=== PATIENT | male | born 1940 | race Caucasian/White ===

== ENCOUNTER → 2016-04-04 | Outpatient (CLI) | payer OTHER ==
--- NOTE | 2016-04-04 23:07 | CT ---
CT Chest, Without Contrast - High-Resolution Indication: Progressive cough and fever. Evaluate for infiltrates. TECHNIQUE: High-resolution protocol, with 1.25-mm contiguous helical axial scanning, through the liban st. The patient was imaged in the supine and prone position. The patient was imaged in expiration a nd inspiration. Dose reduction techniques were performed. COMPARISON: Chest x-ray May 05, 2015. Findings: There is a focal area of ground-glass opacity in the right upper lobe as well as other dif fuse peribronchial/perivascular ground-glass opacity in the right upper lobe only. The right middle lobe shows nondependent mild interstitial thickening. There is a patchy area of scarring or consolid ation at the lateral right and left bases as well as posterior left base. No evidence of significant air trapping. There has been a prior median sternotomy for aortic valvular repair. There has been prior fusions of the lower cervical spine and lumbar spine. Limited examination of the upper abdomen is unremarkable . Dense material in the colon likely represents an ingested pill. IMPRESSIONS 1. Patchy areas of ground-glass opacity in the right upper lobe. Recommend short interval follow up to evaluate for resolution. This is nonspecific but likely represents interstitial lung disease. A n interstitial pneumonia is not excluded. 2. There are also some consolidative or scarring changes at the lateral right and left bases and pos terior left base. Query history of aspiration. E:amm A Follow-Up Required message has been communicated to Jay Busby MD via the [employer] system on 04/04/2016 18:19, Message ID [id number].
== END ==
LOC: FIMAGING 15:05
PROVIDERS: ATTEND Internal Medicine
DX: R91.8 Other nonspecific abnormal finding of lung field (principal)

== ENCOUNTER → 2016-04-26 | Outpatient (CLI) | payer OTHER ==
--- NOTE | 2016-04-26 16:45 | DX ---
PA and Lateral Chest April 26, 2016 History: Follow up pneumonia in a 75-year-old male, with comparison to PA and lateral chest February 27, 2016 and high-resolution CT scan of the chest April 04, 2016. Findings: The heart and mediastinum are normal. Cardiac valvular replacement is stable as are the s ternotomy wires. Pulmonary vascularity is normal. Aortic tortuosity is seen, which may reflect syst emic arterial hypertension. An element of hyperexpansion is seen. There is patchy opacity at the ri ght heart border, which presumably reflects an inflammatory process in the lingular segment of the le ft upper lobe, which is more prominent than on the CT scan. Minimal blunting of the costophrenic ang les is seen, without significant pleural effusion. An element of hyperexpansion is suspected. Impression: 1. Patchy lingular segment opacity may reflect active inflammatory process. 2. Hyperexpansion suggests an element of COPD. 3. See above report for additional findings.
== END ==
LOC: BMCIMAGING 15:59
PROVIDERS: ATTEND Internal Medicine Critical Care Medicine
DX: J18.9 Pneumonia, unspecified organism (principal); Z95.2 Presence of prosthetic heart valve

== ENCOUNTER → 2016-05-15 | Outpatient (CLI) | payer OTHER ==
[~2016-05-15] MED LIST: LIDOCAINE 1% 30 ML SDV ONE; LIDOCAINE 2% JELLY 5 ML TUBE ONE; MIDAZOLAM 2 MG/2 ML VIAL ONE; fentaNYL 100 MCG/2 ML INJ ONE
== END ==
LOC: FIMAGING 16:18
PROVIDERS: ATTEND Internal Medicine Critical Care Medicine
DX: J18.9 Pneumonia, unspecified organism (principal)
CPT/HCPCS: J2250; J3010

== ENCOUNTER 2016-05-16 07:43 | Day surgery (SDC) | payer OTHER ==
--- NOTE | 2016-05-16 10:06 | GPN ---
DATE OF PROCEDURE: 05/16/2016 PROCEDURE: Flexible fiberoptic bronchoscopy. REASON FOR THE PROCEDURE: Infiltrates and symptoms, possible TB. DESCRIPTION OF PROCEDURE: The risks and benefits of the procedure were explained to the patient, who agreed to proceed. The entire procedure was performed in a negative pressure room. After an appropriate time-out, the patient's oropharynx was anesthetized with topical Hurricaine spray, and a bite block was placed between his teeth. The bronchoscope was advanced through the bite block into the vocal cords, which moved normally. 1% lidocaine was used topically on the airways for anesthesia. The bronchoscope was advanced through the vocal cords into the trachea. I proceeded directly to the lingula, where a wedge position was obtained and a lavage was performed with return of slightly cloudy fluid. The bronchoscope was then removed from the wedge position. I examined all airways bilaterally, and encountered scant purulent secretions and a normal anatomy and essentially normal bronchial mucosa with just mild friability. I then turned to the right upper lobe, where I lavaged all subsegments, and sent this as a separate specimen #2. The patient tolerated the procedure well. 4 mg of Versed and 150 mcg of fentanyl were used intravenously for analgesia and sedation. Specimens were sent for cultures and the TB gene probe. /[id number]/MODL MTDD
== END 2016-05-16 09:50 | disposition home or self-care (01) ==
LOC: FSGY 07:43
PROVIDERS: ATTEND Internal Medicine Critical Care Medicine
DX: J18.9 Pneumonia, unspecified organism (principal); F31.9 Bipolar disorder, unspecified; Z95.2 Presence of prosthetic heart valve; Z85.46 Personal history of malignant neoplasm of prostate; Z85.520 Personal history of malignant carcinoid tumor of kidney; Z98.1 Arthrodesis status; Z96.649 Presence of unspecified artificial hip joint
CPT/HCPCS: J0171

== ENCOUNTER → 2016-05-29 | Outpatient (CLI) | payer OTHER | LOC: FIMAGING 11:53 | PROVIDERS: ATTEND Internal Medicine Infectious Disease | DX: J42 Unspecified chronic bronchitis (principal); M51.34 Other intervertebral disc degeneration, thoracic region ==

== ENCOUNTER → 2017-01-01 | Outpatient (CLI) | payer OTHER | LOC: BMCIMAGING 13:30 | PROVIDERS: ATTEND Nurse Practitioner Adult Health | DX: R05 Cough (principal); R53.83 Other fatigue ==

== ENCOUNTER 2017-01-21 14:39 | Emergency (ER) | payer OTHER ==
[2017-01-21] MEDS ORDERED: NS 500 ML IV ONE (15:10)
--- NOTE | 2017-01-21 15:10 | CPEKG ---
Heart Rate: 64 RR Interval: 938 P-R Interval: 188 QRSD Interval: 80 QT Interval: 376 QTC Interval: 388 P [place]: 74 QRS [place]: 65 T Wave [place]: 84 EKG Severity - NORMAL ECG - EKG Impression: SINUS RHYTHM Electronically Signed By: Jaxson Felix 21-Jan-2017 20:52:46
--- NOTE | 2017-01-21 15:10 | CPEKG ---
Heart Rate: 64 RR Interval: 938 P-R Interval: 188 QRSD Interval: 80 QT Interval: 376 QTC Interval: 388 P [place]: 74 QRS [place]: 65 T Wave [place]: 84 EKG Severity - NORMAL ECG - EKG Impression: SINUS RHYTHM Electronically Signed By: Jaxson Felix 21-Jan-2017 20:52:46
[2017-01-21 15:12] LABS: PLATELET COUNT 145 10^3/uL (150-400)
[2017-01-21] MEDS ORDERED: IOPAMIDOL (ISOVUE 370) 100 ML BTL IV ONE (15:47)
--- NOTE | 2017-01-21 15:55 | EDPHY ---
H & P Time Seen by Provider: 01/21/17 15:10 HPI/ROS: HPI Chronic cough. 76-year-old male by private vehicle. This patient is currently being managed at the [facility] by his primary care physician Dr. Busby and his associate project manager Dr. Tashi Weems. He reports that about 1 month ago he returned from a trip to [place] with a cough and bronchitis like condition. Since that time he has had continued cough, a feeling of fatigue and some muscle aches and joint aches. He reports that he has been on 2 courses of prednisone, a full course of azithromycin, Augmentin and he is currently finishing a 14 day course of Levaquin with 2 days remaining. He complains of continued dry nonproductive cough. He has a short associated shortness of breath with the coughing fits. ROS: Constitutional: No fever, no chills. No weakness. Eyes: No discharge. No changes in vision. ENT: No sore throat. No nasal congestion or rhinorrhea. Respiratory: As above. Cardiac: No chest pain, no palpitations. Gastrointestinal: No abdominal pain, no vomiting, no diarrhea. Genitourinary: No hematuria. No dysuria or increased frequency with urination. Musculoskeletal: No back pain. No neck pain. No myalgias or arthralgias. Skin: No rashes. Neurological: No headache. No focal weakness or altered sensation. Past medical history: Kidney cancer, prostatectomy, cervical fusion, x2, left hip replacement, partial nephrectomy, aortic valve replacement, appendectomy, spine surgery. Hypothyroid. As above. Social history: Nonsmoker. No alcohol. . Here by himself currently. Physical Exam: General Appearance: Alert, no distress. This patient is responding to questions appropriately and in full sentences. This patient appears well- hydrated and well-nourished. Eyes: Pupils equal and round no pallor or injection. No lid edema, erythema or injection. ENT, Mouth: Mucous membranes are moist. The pharyngeal tissues are unremarkable. No edema or swelling. No asymmetry suggestive of abscess. No erythema or exudates. Respiratory: There are no retractions, lungs are clear to auscultation with good air movement bilaterally. Cardiovascular: Regular rate and rhythm. No murmur. Gastrointestinal: Abdomen is soft and nontender, no masses, bowel sounds normal. No focal tenderness at McBurney's point. No Hollins sign. Neurological: Motor sensory function is grossly intact. Cranial nerves are normal. Gait is normal. Skin: Warm and dry, no rashes. Musculoskeletal: Neck is supple and nontender. Extremities are symmetrical. All joints range without pain or impingement. Psychiatric: No agitation. No depression. Database: EKG: EKG time is 3:07 p.m.; EKG shows a narrow complex normal sinus rhythm with a ventricular rate of 64. The [place], QRS, QT intervals are within normal limits. There are no ST-T wave changes indicative of ischemic or injury pattern. No evidence of right heart strain. Interpreted by me. Imaging: Chest x-ray PA and lateral; the cardiac mediastinal silhouette is unremarkable. No evidence of infiltrate or pneumothorax. No acute cardiopulmonary disease process noted. Interpreted by me. CT angiogram of the chest. There is a small peripheral left lower lobe segmental pulmonary embolism. Likely not clinically significant. Bibasilar atelectasis is noted. Results were discussed with staff radiologist Dr. Juan Ceja. Bilateral lower extremity Doppler ultrasound; negative for for DVT or other abnormality. Results discussed with staff radiologist. Procedures: Emergency department course: IV was placed. He was placed on a equipment monitor phototypesetting. He was given Tessalon Perle for his cough. Vital signs reviewed. He is afebrile. Vital signs are otherwise unremarkable. EKG performed and reviewed by myself. Presentation is consistent with more of a chronic viral bronchitis. However, he was sent here by his associate project manager for a workup. I discussed CT imaging of his chest to evaluate for pneumonitis versus pulmonary embolism. He consents. 5:05 p.m., patient evaluated. Resting comfortably at this time. Vital signs reviewed and are normal. Discussed results of CT scan. Explained I would consult with his associate project manager Dr. Tashi Weems on further management. 5:15 p.m., spoke with associate project manager Dr. Tashi Weems. Results of CT scan discussed with him. Patient's presentation and history reviewed. Dr. Weems requested we obtain lower extremity ultrasounds. Assuming these are unremarkable. He will see this patient in the office close follow-up within the next week. We will hold anticoagulation therapy at this time. 6:00 p.m., results of ultrasound discussed. Patient discharged in good condition. He will follow up with Dr. Tashi Minor as above. Differential Diagnosis: The differential diagnosis on this patient includes but is not limited to chronic bronchitis, viral upper respiratory infection. Pneumonia, pulmonary embolism, acute coronary syndrome, congestive heart failure, pneumothorax unlikely. This represents a partial list of diagnoses considered. These considerations are based on history, physical exam, past history, reassessment and diagnostic testing. Smoking Status: Former smoker Constitutional: Initial Vital Signs Temperature (C) 36.3 C 01/21/17 14:52 Heart Rate 66 01/21/17 14:52 Respiratory Rate 16 01/21/17 14:52 Blood Pressure 134/82 H 01/21/17 14:52 O2 Sat (%) 97 01/21/17 14:52 O2 Delivery Mode Room Air Allergies/Adverse Reactions: No Known Allergies Allergy (Verified 05/15/16 15:10) Home Medications: Medication Instructions Recorded Ambien 05/15/16 Forteo 05/15/16 Lipitor 05/15/16 [place] Carbonate Cap 300 mg (*) 05/15/16 Seroquel 05/15/16 Sonata 05/15/16 Synthroid 05/15/16 Zegerid 20 mg Capsule 05/15/16 Benzonatate [Tessalon Pearles] 100 mg PO TID #12 cap 01/21/17 Medical Decision Making - Diagnostics Imaging Results: Imaging Impressions Chest X-Ray 01/21/17 14:59 Impression: Nothing acute radiographically. Chest/Thorax CTA 01/21/17 15:36 Impression: 1. Small segmental left lower lobe pulmonary embolus. 2. Mild bronchitis. 3. Coronary artery atherosclerosis. 4. Additional findings as above. Findings discussed with Jaxson Felix MD, on 01/21/2017 at 16:35. Extremity Venous Study 01/21/17 17:12 Impression: No deep venous thrombosis bilateral legs. Findings and recommendations discussed with Emergency Department physician, Jaxson Felix MD at 17:58 hour, 01/21/2017. Final report concurs with initial preliminary interpretation. - Data Points Laboratory Results: Laboratory Results 01/21/17 15:04 01/21/17 15:04 01/21/17 01/21/17 01/21/17 15:04 15:04 15:04 WBC RBC Hgb Hct MCV MCH MCHC RDW Plt Count MPV Neut % (Auto) Lymph % (Auto) [place] % (Auto) Eos % (Auto) Baso % (Auto) Nucleat RBC Rel Count Absolute Neuts (auto) Absolute Lymphs (auto) Absolute Monos (auto) Absolute Eos (auto) Absolute Basos (auto) Absolute Nucleated RBC Immature Gran % Immature Gran # Sodium 138 mEq/L mEq/L (134-144) Potassium 4.6 mEq/L mEq/L (3.5-5.2) Chloride 101 mEq/L mEq/L (97-110) Carbon Dioxide 26 mEq/l mEq/l (22-31) Anion Gap 11 mEq/L mEq/L (8-16) BUN 15 mg/dL mg/dL (7-23) Creatinine 1.0 mg/dL mg/dL (0.7-1.3) Estimated GFR > 60 Glucose 86 mg/dL mg/dL (70-100) Calcium 10.7 mg/dL H mg/dL (8.5-10.4) Phosphorus 3.1 mg/dL mg/dL (2.5-4.5) Troponin I < 0.012 ng/mL ng/mL (0.000-0.034) NT-Pro-B Natriuret Pep 89 pg/mL pg/mL (0-125) [place] 0.2 mEq/L L mEq/L (0.6-1.2) 01/21/17 15:04 WBC 9.09 10^3/uL 10^3/uL (3.80-9.50) RBC 5.06 10^6/uL 10^6/uL (4.40-6.38) Hgb 15.0 g/dL g/dL (13.7-17.5) Hct 45.4 % % (40.0-51.0) MCV 89.7 fL fL (81.5-99.8) MCH 29.6 pg pg (27.9-34.1) MCHC 33.0 g/dL g/dL (32.4-36.7) RDW 13.2 % % (11.5-15.2) Plt Count 145 10^3/uL L 10^3/uL (150-400) MPV 8.4 fL L fL (8.7-11.7) Neut % (Auto) 76.9 % H % (39.3-74.2) Lymph % (Auto) 11.3 % L % (15.0-45.0) [place] % (Auto) 6.2 % % (4.5-13.0) Eos % (Auto) 4.0 % % (0.6-7.6) Baso % (Auto) 0.6 % % (0.3-1.7) Nucleat RBC Rel Count 0.0 % % (0.0-0.2) Absolute Neuts (auto) 7.00 10^3/uL H 10^3/uL (1.70-6.50) Absolute Lymphs (auto) 1.03 10^3/uL 10^3/uL (1.00-3.00) Absolute Monos (auto) 0.56 10^3/uL 10^3/uL (0.30-0.80) Absolute Eos (auto) 0.36 10^3/uL 10^3/uL (0.03-0.40) Absolute Basos (auto) 0.05 10^3/uL 10^3/uL (0.02-0.10) Absolute Nucleated RBC 0.00 10^3/uL 10^3/uL (0-0.01) Immature Gran % 1.0 % % (0.0-1.1) Immature Gran # 0.09 10^3/uL 10^3/uL (0.00-0.10) Sodium Potassium Chloride Carbon Dioxide Anion Gap BUN Creatinine Estimated GFR Glucose Calcium Phosphorus Troponin I NT-Pro-B Natriuret Pep [place] Medications Given: Discontinued Medications Benzonatate (Tessalon Pearles) 200 mg PO EDNOW ONE Stop: 01/21/17 16:01 Last Admin: 01/21/17 16:19 Dose: 200 mg Sodium Chloride (Ns) 500 mls @ 1,000 mls/hr IV EDNOW ONE PRN Reason: Protocol Stop: 01/21/17 15:39 Last Admin: 01/21/17 15:19 Dose: 500 mls Departure - Departure Disposition: Home, Routine, Self-Care Clinical Impression: Bronchitis, Pulmonary embolism Condition: Good Instructions: Acute Bronchitis (ED) Additional Instructions: Read and follow provided instructions. Follow-up with Dr. Tashi Weems as discussed for re-evaluation. Call his office tomorrow morning for appointment time. Follow up within the next 4 days. Take medication as prescribed for cough. Return to the emergency department for worsening cough, difficulty breathing, chest pain or other serious concerns. Referrals: Tashi Weems MD [Medical Doctor] - As per Instructions Prescriptions: Benzonatate [Tessalon Pearles] 100 mg PO TID #12 cap
--- NOTE | 2017-01-21 15:55 | EDPHY ---
H & P Time Seen by Provider: 01/21/17 15:10 HPI/ROS: HPI Chronic cough. 76-year-old male by private vehicle. This patient is currently being managed at the [facility] by his primary care physician Dr. Busby and his furniture removalist Dr. Tashi Weems. He reports that about 1 month ago he returned from a trip to [place] with a cough and bronchitis like condition. Since that time he has had continued cough, a feeling of fatigue and some muscle aches and joint aches. He reports that he has been on 2 courses of prednisone, a full course of azithromycin, Augmentin and he is currently finishing a 14 day course of Levaquin with 2 days remaining. He complains of continued dry nonproductive cough. He has a short associated shortness of breath with the coughing fits. ROS: Constitutional: No fever, no chills. No weakness. Eyes: No discharge. No changes in vision. ENT: No sore throat. No nasal congestion or rhinorrhea. Respiratory: As above. Cardiac: No chest pain, no palpitations. Gastrointestinal: No abdominal pain, no vomiting, no diarrhea. Genitourinary: No hematuria. No dysuria or increased frequency with urination. Musculoskeletal: No back pain. No neck pain. No myalgias or arthralgias. Skin: No rashes. Neurological: No headache. No focal weakness or altered sensation. Past medical history: Kidney cancer, prostatectomy, cervical fusion, x2, left hip replacement, partial nephrectomy, aortic valve replacement, appendectomy, spine surgery. Hypothyroid. As above. Social history: Nonsmoker. No alcohol. . Here by himself currently. Physical Exam: General Appearance: Alert, no distress. This patient is responding to questions appropriately and in full sentences. This patient appears well- hydrated and well-nourished. Eyes: Pupils equal and round no pallor or injection. No lid edema, erythema or injection. ENT, Mouth: Mucous membranes are moist. The pharyngeal tissues are unremarkable. No edema or swelling. No asymmetry suggestive of abscess. No erythema or exudates. Respiratory: There are no retractions, lungs are clear to auscultation with good air movement bilaterally. Cardiovascular: Regular rate and rhythm. No murmur. Gastrointestinal: Abdomen is soft and nontender, no masses, bowel sounds normal. No focal tenderness at McBurney's point. No Hollins sign. Neurological: Motor sensory function is grossly intact. Cranial nerves are normal. Gait is normal. Skin: Warm and dry, no rashes. Musculoskeletal: Neck is supple and nontender. Extremities are symmetrical. All joints range without pain or impingement. Psychiatric: No agitation. No depression. Database: EKG: EKG time is 3:07 p.m.; EKG shows a narrow complex normal sinus rhythm with a ventricular rate of 64. The [place], QRS, QT intervals are within normal limits. There are no ST-T wave changes indicative of ischemic or injury pattern. No evidence of right heart strain. Interpreted by me. Imaging: Chest x-ray PA and lateral; the cardiac mediastinal silhouette is unremarkable. No evidence of infiltrate or pneumothorax. No acute cardiopulmonary disease process noted. Interpreted by me. CT angiogram of the chest. There is a small peripheral left lower lobe segmental pulmonary embolism. Likely not clinically significant. Bibasilar atelectasis is noted. Results were discussed with staff radiologist Dr. Juan Ceja. Bilateral lower extremity Doppler ultrasound; negative for for DVT or other abnormality. Results discussed with staff radiologist. Procedures: Emergency department course: IV was placed. He was placed on a court monitor. He was given Tessalon Perle for his cough. Vital signs reviewed. He is afebrile. Vital signs are otherwise unremarkable. EKG performed and reviewed by myself. Presentation is consistent with more of a chronic viral bronchitis. However, he was sent here by his furniture removalist for a workup. I discussed CT imaging of his chest to evaluate for pneumonitis versus pulmonary embolism. He consents. 5:05 p.m., patient evaluated. Resting comfortably at this time. Vital signs reviewed and are normal. Discussed results of CT scan. Explained I would consult with his furniture removalist Dr. Tashi Weems on further management. 5:15 p.m., spoke with furniture removalist Dr. Tashi Weems. Results of CT scan discussed with him. Patient's presentation and history reviewed. Dr. Weems requested we obtain lower extremity ultrasounds. Assuming these are unremarkable. He will see this patient in the office close follow-up within the next week. We will hold anticoagulation therapy at this time. 6:00 p.m., results of ultrasound discussed. Patient discharged in good condition. He will follow up with Dr. Tashi Minor as above. Differential Diagnosis: The differential diagnosis on this patient includes but is not limited to chronic bronchitis, viral upper respiratory infection. Pneumonia, pulmonary embolism, acute coronary syndrome, congestive heart failure, pneumothorax unlikely. This represents a partial list of diagnoses considered. These considerations are based on history, physical exam, past history, reassessment and diagnostic testing. Smoking Status: Former smoker Constitutional: Initial Vital Signs Temperature (C) 36.3 C 01/21/17 14:52 Heart Rate 66 01/21/17 14:52 Respiratory Rate 16 01/21/17 14:52 Blood Pressure 134/82 H 01/21/17 14:52 O2 Sat (%) 97 01/21/17 14:52 O2 Delivery Mode Room Air Allergies/Adverse Reactions: No Known Allergies Allergy (Verified 05/15/16 15:10) Home Medications: Medication Instructions Recorded Ambien 05/15/16 Forteo 05/15/16 Lipitor 05/15/16 [place] Carbonate Cap 300 mg (*) 05/15/16 Seroquel 05/15/16 Sonata 05/15/16 Synthroid 05/15/16 Zegerid 20 mg Capsule 05/15/16 Benzonatate [Tessalon Pearles] 100 mg PO TID #12 cap 01/21/17 Medical Decision Making - Diagnostics Imaging Results: Imaging Impressions Chest X-Ray 01/21/17 14:59 Impression: Nothing acute radiographically. Chest/Thorax CTA 01/21/17 15:36 Impression: 1. Small segmental left lower lobe pulmonary embolus. 2. Mild bronchitis. 3. Coronary artery atherosclerosis. 4. Additional findings as above. Findings discussed with Jaxson Felix MD, on 01/21/2017 at 16:35. Extremity Venous Study 01/21/17 17:12 Impression: No deep venous thrombosis bilateral legs. Findings and recommendations discussed with Emergency Department physician, Jaxson Felix MD at 17:58 hour, 01/21/2017. Final report concurs with initial preliminary interpretation. - Data Points Laboratory Results: Laboratory Results 01/21/17 15:04 01/21/17 15:04 01/21/17 01/21/17 01/21/17 15:04 15:04 15:04 WBC RBC Hgb Hct MCV MCH MCHC RDW Plt Count MPV Neut % (Auto) Lymph % (Auto) [place] % (Auto) Eos % (Auto) Baso % (Auto) Nucleat RBC Rel Count Absolute Neuts (auto) Absolute Lymphs (auto) Absolute Monos (auto) Absolute Eos (auto) Absolute Basos (auto) Absolute Nucleated RBC Immature Gran % Immature Gran # Sodium 138 mEq/L mEq/L (134-144) Potassium 4.6 mEq/L mEq/L (3.5-5.2) Chloride 101 mEq/L mEq/L (97-110) Carbon Dioxide 26 mEq/l mEq/l (22-31) Anion Gap 11 mEq/L mEq/L (8-16) BUN 15 mg/dL mg/dL (7-23) Creatinine 1.0 mg/dL mg/dL (0.7-1.3) Estimated GFR > 60 Glucose 86 mg/dL mg/dL (70-100) Calcium 10.7 mg/dL H mg/dL (8.5-10.4) Phosphorus 3.1 mg/dL mg/dL (2.5-4.5) Troponin I < 0.012 ng/mL ng/mL (0.000-0.034) NT-Pro-B Natriuret Pep 89 pg/mL pg/mL (0-125) [place] 0.2 mEq/L L mEq/L (0.6-1.2) 01/21/17 15:04 WBC 9.09 10^3/uL 10^3/uL (3.80-9.50) RBC 5.06 10^6/uL 10^6/uL (4.40-6.38) Hgb 15.0 g/dL g/dL (13.7-17.5) Hct 45.4 % % (40.0-51.0) MCV 89.7 fL fL (81.5-99.8) MCH 29.6 pg pg (27.9-34.1) MCHC 33.0 g/dL g/dL (32.4-36.7) RDW 13.2 % % (11.5-15.2) Plt Count 145 10^3/uL L 10^3/uL (150-400) MPV 8.4 fL L fL (8.7-11.7) Neut % (Auto) 76.9 % H % (39.3-74.2) Lymph % (Auto) 11.3 % L % (15.0-45.0) [place] % (Auto) 6.2 % % (4.5-13.0) Eos % (Auto) 4.0 % % (0.6-7.6) Baso % (Auto) 0.6 % % (0.3-1.7) Nucleat RBC Rel Count 0.0 % % (0.0-0.2) Absolute Neuts (auto) 7.00 10^3/uL H 10^3/uL (1.70-6.50) Absolute Lymphs (auto) 1.03 10^3/uL 10^3/uL (1.00-3.00) Absolute Monos (auto) 0.56 10^3/uL 10^3/uL (0.30-0.80) Absolute Eos (auto) 0.36 10^3/uL 10^3/uL (0.03-0.40) Absolute Basos (auto) 0.05 10^3/uL 10^3/uL (0.02-0.10) Absolute Nucleated RBC 0.00 10^3/uL 10^3/uL (0-0.01) Immature Gran % 1.0 % % (0.0-1.1) Immature Gran # 0.09 10^3/uL 10^3/uL (0.00-0.10) Sodium Potassium Chloride Carbon Dioxide Anion Gap BUN Creatinine Estimated GFR Glucose Calcium Phosphorus Troponin I NT-Pro-B Natriuret Pep [place] Medications Given: Discontinued Medications Benzonatate (Tessalon Pearles) 200 mg PO EDNOW ONE Stop: 01/21/17 16:01 Last Admin: 01/21/17 16:19 Dose: 200 mg Sodium Chloride (Ns) 500 mls @ 1,000 mls/hr IV EDNOW ONE PRN Reason: Protocol Stop: 01/21/17 15:39 Last Admin: 01/21/17 15:19 Dose: 500 mls Departure - Departure Disposition: Home, Routine, Self-Care Clinical Impression: Bronchitis, Pulmonary embolism Condition: Good Instructions: Acute Bronchitis (ED) Additional Instructions: Read and follow provided instructions. Follow-up with Dr. Tashi Weems as discussed for re-evaluation. Call his office tomorrow morning for appointment time. Follow up within the next 4 days. Take medication as prescribed for cough. Return to the emergency department for worsening cough, difficulty breathing, chest pain or other serious concerns. Referrals: Tashi Weems MD [Medical Doctor] - As per Instructions Prescriptions: Benzonatate [Tessalon Pearles] 100 mg PO TID #12 cap
[2017-01-21] MEDS ORDERED: BENZONATATE 100 MG CAP PO ONE (16:00)
[2017-01-21 18:06] VITALS: RESP 18
[2017-01-21 18:17] VITALS: BP 116/75; PULSE 62; TEMP 98.4; O2SAT 94
== END 2017-01-21 18:15 | disposition home or self-care (01) ==
DX: J40 Bronchitis, not specified as acute or chronic (principal); I26.99 Other pulmonary embolism without acute cor pulmonale; E86.9 Volume depletion, unspecified; Z85.528 Personal history of other malignant neoplasm of kidney; Z87.891 Personal history of nicotine dependence
CPT/HCPCS: 71020; 71275; 93005; 93970; 96360; 99285; Q9967

== ENCOUNTER → 2017-09-12 | Outpatient (CLI) | payer OTHER | LOC: FIMAGING 10:48 | PROVIDERS: ATTEND Internal Medicine | DX: I69.391 Dysphagia following cerebral infarction (principal); I69.328 Other speech and language deficits following cerebral infarction; R13.12 Dysphagia, oropharyngeal phase; K21.9 Gastro-esophageal reflux disease without esophagitis; K22.70 Barrett's esophagus without dysplasia | CPT/HCPCS: 74230; 92611; G8996; G8997; G8998 ==

== ENCOUNTER 2017-12-13 21:31 | Inpatient (IN) | payer OTHER ==
[2017-12-13] MEDS ORDERED: NS 1,000 ML IV ONE (21:58)
--- NOTE | 2017-12-13 21:59 | EDPHY ---
H & P Stated Complaint: blood in stool 3 stools a day for the last 3 days Time Seen by Provider: 12/13/17 21:59 HPI/ROS: HPI CHIEF COMPLAINT: Blood in stool x2 days. HISTORY OF PRESENT ILLNESS: 77-year-old male, presents emergency room by private vehicle for bright red blood per rectum. The patient states for the past 2 days he has had multiple bowel movements. Approximately 3 per day with a blood in his stool. Bright red blood per rectum. He is on Eliquis for AFib. Past Medical History: Kidney cancer Past Surgical History: Multiple surgeries including cervical fusion, nephrectomy, aortic valve, appendectomy, prostatectomy Social History: Denies drugs alcohol tobacco. Family History: Noncontributory ROS REVIEW OF SYSTEMS: 10 Systems were reviewed and negative with the exception of the elements mentioned in the history of present illness. Exam Constitutional elderly, nontoxic, triage nursing summary reviewed, vital signs reviewed, awake/alert. Eyes normal conjunctivae and sclera, EOMI, PERRLA. HENT normal inspection, atraumatic, moist mucus membranes, no epistaxis, neck supple/ no meningismus, no raccoon eyes. Respiratory clear to auscultation bilaterally, normal breath sounds, no respiratory distress, no wheezing. Cardiovascular rate normal, regular rhythm, no murmur, no edema, distal pulses normal. Gastrointestinal soft, non-tender, no rebound, no guarding, normal bowel sounds, no distension, no pulsatile mass. Genitourinary no CVA tenderness. Rectal exam shows no evidence of gross blood. Musculoskeletal no midline vertebral tenderness, full range of motion, no calf swelling, no tenderness of extremities, no meningismus, good pulses, neurovascularly intact. Skin pink, warm, & dry, no rash, skin atraumatic. Neurologic awake, alert and oriented x 3, AAOx3, moves all 4 extremities equally, motor intact, sensory intact, CN II-XII intact, normal cerebellar, normal vision, normal speech. Psychiatric normal mood/affect. Heme/Lymph/Immune no lymphadenopathy. Differential Diagnosis: Includes but is not limited to in a particular order acute GI bleed, lower GI bleed, upper GI bleed, diverticular bleed Medical Decision Making: Given that this patient is on Eliquis for AFib, and is having bright red blood per rectum plan will be for type and screen, 2 large- bore IVs, check CBC, rectal exam, most likely admit to the hospital for GI bleed for evaluation. Re-evaluation: 2242: Patient is hemodynamically stable no acute distress. Plan will be for observation admission overnight for GI bleed. He has not had any bleeding here in the emergency room. H&H are reviewed. He is hemodynamically stable I have asked the hospitalist service to watch him overnight. Dr. Flores accepts. Stool specimen occult to the lab as noted to be negative however patient reports multiple episodes of bright red blood per rectum. During rectal exam there was no stool in the rectal wall. This may be why it is negative. Still observed overnight. Source: Patient, EMS - Personal History Current Tetanus/Diphtheria Vaccine: Yes Current Tetanus Diphtheria and Acellular Pertussis (TDAP): Yes Tetanus Vaccine Date: 09/2011 - Medical/Surgical History Hx Asthma: Yes Hx Chronic Respiratory Disease: No Hx Diabetes: No Hx Cardiac Disease: No Hx Renal Disease: Yes Hx Cirrhosis: No Hx Alcoholism: No Hx HIV/AIDS: No Hx Splenectomy or Spleen Trauma: No Other PMH: Kidney CA; prostectomy; cervical fusion x2; left hip replacement; partial nephrectomy; Aortic valve replacement; appy; colonoscopy/endoscopy w/ biopsy. Spine surg 01/2015, stroke - Social History Smoking Status: Former smoker Constitutional: Initial Vital Signs Temperature (C) 36.7 C 12/13/17 21:44 Heart Rate 62 12/13/17 21:44 Respiratory Rate 16 12/13/17 21:44 Blood Pressure 117/74 12/13/17 21:44 O2 Sat (%) 95 12/13/17 21:44 O2 Delivery Mode Room Air Allergies/Adverse Reactions: No Known Allergies Allergy (Verified 12/13/17 21:47) Home Medications: Medication Instructions Recorded Apixaban [Eliquis] 5 mg PO BID 12/14/17 Atorvastatin Calcium [Lipitor 40 40 mg PO HS 12/14/17 mg (*)] Denosumab [Prolia] 60 mg SQ Q180D 12/14/17 Divalproex ER [Depakote ER 500 MG 750 mg PO HS 12/14/17 (*)] LORazepam [Ativan (*)] 0.5 mg PO QID PRN 12/14/17 Multivitamins [Multivitamin (*)] 1 each PO DAILY 12/14/17 Omeprazole 40 mg PO BID 12/14/17 QUEtiapine FUMARATE [Seroquel 100 400 mg PO HS 12/14/17 mg (*)] ZOLPIDEM TARTRATE [Ambien CR 12.5 12.5 mg PO HS 12/14/17 mg] Zaleplon [Sonata] 10 mg PO HS PRN 12/14/17 Medical Decision Making - Data Points Laboratory Results: Laboratory Results 12/14/17 04:53 12/14/17 04:53 12/13/17 22:00 Total Testosterone Pending Free Testosterone Pending Medications Given: Atorvastatin Calcium (Lipitor) 40 mg PO HS ROMARIO Stop: 06/12/18 20:59 Last Admin: 12/14/17 20:54 Dose: 40 mg Divalproex Sodium (Depakote Er) 500 mg PO HS ROMARIO Stop: 06/12/18 00:29 Last Admin: 12/14/17 20:52 Dose: 500 mg Sodium Chloride (Ns) 1,000 mls @ 100 mls/hr IV CONT ROMARIO Stop: 06/12/18 20:59 Last Admin: 12/14/17 20:58 Dose: 1,000 mls Pantoprazole Sodium (Protonix) 40 mg IVP BID ROMARIO Stop: 06/12/18 08:59 Last Admin: 12/14/17 20:52 Dose: 40 mg Quetiapine Fumarate (Seroquel) 400 mg PO HS ROMARIO Stop: 06/12/18 20:59 Last Admin: 12/14/17 20:53 Dose: 300 mg Zolpidem Tartrate (Ambien) 10 mg PO HS PRN PRN Reason: Sleep/Insomnia Stop: 06/12/18 00:24 Last Admin: 12/14/17 00:58 Dose: 10 mg Discontinued Medications Atorvastatin Calcium (Lipitor) 40 mg PO HS ROMARIO Stop: 06/12/18 00:44 Last Admin: 12/14/17 00:57 Dose: 40 mg Sodium Chloride (Ns) 1,000 mls @ 0 mls/hr IV EDNOW ONE; Wide Open PRN Reason: Protocol Stop: 12/13/17 21:59 Last Admin: 12/13/17 22:21 Dose: 1,000 mls Influenza Virus Vaccine Quadrival (Flulaval Quad [id number] (6mo+)) 0.5 ml IM .ONCE ONE Stop: 12/14/17 14:01 Last Admin: 12/14/17 14:09 Dose: 0.5 ml Pantoprazole Sodium (Protonix) 80 mg IVP EDNOW ONE Stop: 12/13/17 22:25 Last Admin: 12/13/17 22:48 Dose: 80 mg Polyethylene Glycol/Electrolytes (Gavilyte - G) 4,000 ml PO ONCE ONE Stop: 12/14/17 18:01 Last Admin: 12/14/17 18:12 Dose: 4,000 ml Quetiapine Fumarate (Seroquel) 300 mg PO HS ROMARIO Stop: 06/12/18 00:44 Last Admin: 12/14/17 00:58 Dose: 300 mg Departure - Departure Disposition: [facility] Inpatient Acute Clinical Impression: GI bleed Qualifiers: GI bleed type/associated pathology: unspecified gastrointestinal hemorrhage type Qualified Code(s): K92.2 - Gastrointestinal hemorrhage, unspecified Condition: Fair
[2017-12-13 22:20] LABS: PLATELET COUNT 147 10^3/uL (150-400)
[2017-12-13] MEDS ORDERED: PANTOPRAZOLE SODIUM 40 MG VIAL IVP ONE (22:24)
[2017-12-13 22:29] LABS: INR 1.08 (0.83-1.16); PROTIME(PATIENT) 14.2 SEC (12.0-15.0)
[2017-12-13] MEDS ORDERED: ONDANSETRON 4 MG/2 ML VIAL IVP PRN (22:43)
[2017-12-13] MEDS ORDERED: ACETAMINOPHEN 325 MG TAB PO PRN (22:43)
[2017-12-13] MEDS ORDERED: ONDANSETRON DISINTEGRATING 4 MG TAB PO PRN (22:43)
[2017-12-14] MEDS ORDERED: ZOLPIDEM TARTRATE 5 MG TAB PO PRN (00:25)
[2017-12-14] MEDS ORDERED: PANTOPRAZOLE SODIUM 40 MG TAB PO SCH (00:45)
[2017-12-14] MEDS ORDERED: QUEtiapine FUMARATE 300 MG TAB PO SCH (00:45)
[2017-12-14] MEDS ORDERED: ATORVASTATIN CALCIUM 40 MG TAB PO SCH ×2 (00:45→21:00)
--- NOTE | 2017-12-14 00:55 | PDGENHP ---
History and Physical - Chief Complaint BRBPR - History of Present Illness 77 yo M w/ hx of CVA, AF, BPD, RCC, Aldrich's esophagus, and prostate CA presents with BRBPR. Patient describes 4-5 BM's over the last 24 hours with significant, bright red blood. He estimates about 1/4 cup of blood per BM. He feels mildly lightheaded but overall feels well. He denies melena. Of note, he was diagnosed with a stroke in August and started on Eliquis noting hx of Afib. He denies any prior issues w/ BRBPR, he also denies abdominal pain. He is currently hemodynamically stable and H/H are reassuring at . Case discussed with ED physician Dr. Quijano; records reviewed in EMR and [facility]. History Information - Allergies/Home Medication List Allergies/Adverse Reactions: No Known Allergies Allergy (Verified 12/13/17 21:47) Home Medications: Lipitor 40 mg PO HS 05/15/16 [Last Taken 12/12/17 22:00 40 mg] Seroquel 300 mg PO HS 05/15/16 [Last Taken 12/12/17 22:00 300 mg] Sonata 10 mg PO HS 05/15/16 [Last Taken 12/13/17 05:00 10 mg] Eliquis 5 mg PO BID 12/13/17 [Last Taken 12/13/17 10:00 5 mg] Divalproex ER [Depakote ER 500 MG (*)] 500 mg PO HS 12/14/17 [Last Taken 22:00 500 mg] Omeprazole 40 mg PO BID 12/14/17 [Last Taken 12/13/17 10:00 40 mg] ZOLPIDEM TARTRATE [Ambien CR 12.5 mg] 12.5 mg PO HS 12/14/17 [Last Taken 22:00 12.5 mg] I have personally reviewed and updated: family history, medical history - Past Medical History atrial fibrillation, CVA Additional medical history: Bipolar Disorder. RCC. Prostate CA. Aldrich's esophagus - Surgical History Reports: spinal surgery Additional surgical history: Aortic valve replacement, bovine. Hip replacement. R partial nephrectomy. Radical prostatectomy - Family History Additional family history: Mother had colon cancer in her 90's - Social History Smoking Status: Former smoker Review of Systems Review of Systems: ROS: 10pt was reviewed & negative except for what was stated in HPI & below Physical Exam Physical Exam: Temp Pulse Resp BP Pulse Ox 36.5 C 58 L 19 123/63 H 95 12/13/17 23:42 12/13/17 23:42 12/13/17 23:42 12/13/17 23:42 12/13/17 23:42 Constitutional: no apparent distress, not in pain Eyes: PERRL, EOMI Ears, Nose, Mouth, Throat: moist mucous membranes, no oral mucosal ulcers Cardiovascular: regular rate and rhythym, no murmur, rub, or gallop Respiratory: no respiratory distress, clear to auscultation Gastrointestinal: normoactive bowel sounds, soft, non-tender abdomen Skin: warm, normal color Musculoskeletal: full muscle strength, no muscle tenderness Neurologic: AAOx3, CN II-XII Intact Psychiatric: interacting appropriately, not anxious Lab Data & Imaging Review 12/13/17 22:00 12/13/17 22:00 WBC 5.47 10^3/uL (3.80-9.50) 12/13/17 22:00 RBC 4.41 10^6/uL (4.40-6.38) 12/13/17 22:00 Hgb 13.2 g/dL (13.7-17.5) L 12/13/17 22:00 Hct 38.9 % (40.0-51.0) L 12/13/17 22:00 MCV 88.2 fL (81.5-99.8) 12/13/17 22:00 MCH 29.9 pg (27.9-34.1) 12/13/17 22:00 MCHC 33.9 g/dL (32.4-36.7) 12/13/17 22:00 RDW 13.2 % (11.5-15.2) 12/13/17 22:00 Plt Count 147 10^3/uL (150-400) L 12/13/17 22:00 MPV 10.0 fL (8.7-11.7) 12/13/17 22:00 Neut % (Auto) 61.5 % (39.3-74.2) 12/13/17 22:00 Lymph % (Auto) 22.9 % (15.0-45.0) 12/13/17 22:00 Duval % (Auto) 9.0 % (4.5-13.0) 12/13/17 22:00 Eos % (Auto) 5.7 % (0.6-7.6) 12/13/17 22:00 Baso % (Auto) 0.7 % (0.3-1.7) 12/13/17 22:00 Nucleat RBC Rel Count 0.0 % (0.0-0.2) 12/13/17 22:00 Absolute Neuts (auto) 3.37 10^3/uL (1.70-6.50) 12/13/17 22:00 Absolute Lymphs (auto) 1.25 10^3/uL (1.00-3.00) 12/13/17 22:00 Absolute Monos (auto) 0.49 10^3/uL (0.30-0.80) 12/13/17 22:00 Absolute Eos (auto) 0.31 10^3/uL (0.03-0.40) 12/13/17 22:00 Absolute Basos (auto) 0.04 10^3/uL (0.02-0.10) 12/13/17 22:00 Absolute Nucleated RBC 0.00 10^3/uL (0-0.01) 12/13/17 22:00 Immature Gran % 0.2 % (0.0-1.1) 12/13/17 22:00 Immature Gran # 0.01 10^3/uL (0.00-0.10) 12/13/17 22:00 PT 14.2 SEC (12.0-15.0) 12/13/17 22:00 INR 1.08 (0.83-1.16) 12/13/17 22:00 APTT 32.2 SEC (23.0-38.0) 12/13/17 22:00 VBG Lactic Acid 1.4 mmol/L (0.7-2.1) 12/13/17 22:00 Sodium 138 mEq/L (135-145) 12/13/17 22:00 Potassium 4.2 mEq/L (3.3-5.0) 12/13/17 22:00 Chloride 105 mEq/L (97-110) 12/13/17 22:00 Carbon Dioxide 27 mEq/l (22-31) 12/13/17 22:00 Anion Gap 6 mEq/L (8-16) L 12/13/17 22:00 BUN 14 mg/dL (7-23) 12/13/17 22:00 Creatinine 1.0 mg/dL (0.7-1.3) 12/13/17 22:00 Estimated GFR > 60 12/13/17 22:00 Glucose 93 mg/dL (70-100) 12/13/17 22:00 Calcium 9.6 mg/dL (8.5-10.4) 12/13/17 22:00 Total Bilirubin 0.4 mg/dL (0.1-1.4) 12/13/17 22:00 Conjugated Bilirubin 0.1 mg/dL (0.0-0.5) 12/13/17 22:00 Unconjugated Bilirubin 0.3 mg/dL (0.0-1.1) 12/13/17 22:00 AST 27 IU/L (17-59) 12/13/17 22:00 ALT 29 IU/L (21-72) 12/13/17 22:00 Alkaline Phosphatase 51 IU/L (38-126) 12/13/17 22:00 Total Protein 6.7 g/dL (6.3-8.2) 12/13/17 22:00 Albumin 4.1 g/dL (3.5-5.0) 12/13/17 22:00 Lipase 247 IU/L (23-300) 12/13/17 22:00 Stool Occult Bld Scrn NEGATIVE (NEGATIVE) 12/13/17 22:45 Patient ABO/Rh B NEGATIVE 12/13/17 22:00 Antibody Screen NEGATIVE 12/13/17 22:00 Assessment & Plan Assessment: 77 yo M w/ hx of CVA, AF, BPD, RCC, Aldrich's esophagus, and prostate CA presents with hematochezia. Plan: 1. Hematochezia - Present for 2 days; currently hemodynamically stable and reassuring H/H (). Situation is concerning for lower GI source, he has no prior history of this. He did start anticoagulation in August for AF and stroke, so this is likely contributing. Of note, he does have history of RCC and prostate CA. - Admit for observation - Trend CBC, next at 0600 - Hold Eliquis - Maintain NPO for now - PPI IV BID (does have history of Aldrich's esophagus although he denies melena ) - Colonoscopy indicated for further evaluation; this can likely be done as an outpatient as long as H/H remain stable and blood loss is not significant. I discussed this with patient and he is in agreement - If H/H shows significant drop or VS abnormal, consult GI 2. Hx AF - On Eliquis for anticoagulation. - Hold AC for now noting above - Expedient evaluation of GIB indicated so this can be restarted 3. Hx CVA - Diagnosed in August, still with word finding difficulties. - Continue statin, hold Eliquis 4. Hx RCC - S/p partial R nephrectomy. 5. Hx prostate CA - S/p radical prostatectomy. 6. Hx BPD - Continue home medications, appears very well compensated. Diet - NPO Code - Full Ppx - SCDs Dispo - Admit under observation status
[2017-12-14] MEDS: DIVALPROEX ER 500 MG TAB PO SCH ×2 (00:58→20:52)
[2017-12-14 05:42] LABS: PLATELET COUNT 116 10^3/uL (150-400)
[2017-12-14] MEDS: PANTOPRAZOLE SODIUM 40 MG VIAL IVP SCH ×2 (11:00→20:52)
[2017-12-14] MEDS ORDERED: Zaleplon [Sonata] 10 MG PO PRN (11:07)
[2017-12-14] MEDS ORDERED: LORazepam 0.5 MG TAB PO PRN (11:07)
--- NOTE | 2017-12-14 11:17 | HOSPPROG ---
Hospitalist Progress Note Assessment/Plan: 77 yo M w/ hx of CVA, AF, BPD, RCC, Aldrich's esophagus, and prostate CA presents with hematochezia. First encounter, chart reviewed. D/W Dr Clark. Plan: 1. Hematochezia - Present for 2 days; -currently hemodynamically stable and reassuring H/H (). -Rec colonoscopy -D/W GI, plan for prep today and colon in am - He did start anticoagulation in August for AF and stroke, on eliquis - Hold Eliquis - Maintain clear liquid, - PPI IV BID (does have history of Aldrich's esophagus although he denies melena ) 2. Hx AF - On Eliquis for anticoagulation. - Hold AC for now noting above - Expedient evaluation of GIB indicated so this can be restarted 3. Hx CVA - Diagnosed in August, still with word finding difficulties. - Continue statin, hold Eliquis 4. Hx RCC - S/p partial R nephrectomy. 5. Hx prostate CA - S/p radical prostatectomy. 6. Hx BPD - Continue home medications, appears very well compensated. Diet - NPO Code - Full Ppx - SCDs Dispo - Change to inpatient staus given need for colon and further evaluation. Subjective: Feeling ok. No pain. No specific issues. Objective: Vital Signs Temp Pulse Resp BP Pulse Ox 36.4 C 50 L 14 117/60 93 12/14/17 07:32 12/14/17 07:32 12/14/17 07:32 12/14/17 07:32 12/14/17 07:32 Laboratory Results 12/14/17 04:53 12/14/17 04:53 12/13/17 12/14/17 12/15/17 05:59 05:59 05:59 Intake Total 1120 Balance 1120 PT 14.2 SEC (12.0-15.0) 12/13/17 22:00 INR 1.08 (0.83-1.16) 12/13/17 22:00 - Physical Exam Constitutional: no apparent distress, appears nourished, not in pain Eyes: PERRL, anicteric sclera, EOMI Ears, Nose, Mouth, Throat: moist mucous membranes, hearing normal, ears appear normal Cardiovascular: irregularly irregular, No JVD, No edema Respiratory: no respiratory distress, no rales or rhonchi, reduced air movement Gastrointestinal: normoactive bowel sounds, No tenderness, No ascites Skin: warm, normal color, No mottled Musculoskeletal: normal joint ROM, no joint effusions, generalized weakness Neurologic: AAOx3 Psychiatric: interacting appropriately, not anxious, not encephalopathic, thought process linear ICD10 Worksheet Patient Problems: Problems Problem Status Onset Rib lesion Acute GI bleed Acute
--- NOTE | 2017-12-14 12:19 | PDMN ---
Medical Necessity Medical necessity: Change to IP, as of 12/14/17, per [employer] & MCG M-182; los >2 mn for ongoing management of hematochezia; requiring clear liquid diet, GI consult w/colonoscopy & IV PPI; comorbid advanced age, AFIB on AC, CVA, prostate cancer , renal cell carcinoma
--- NOTE | 2017-12-14 12:26 | ASMTCMCOM ---
CM Note CM Note Notes: Patient admitted with two days of hematochezia. GI has recommended a colonoscopy, which he will have tomorrow. Patient is normally independent, lives with . No discharge needs anticipated. Case Management available if this changes. Date Signed: 12/14/2017 12:26 PM Electronically Signed By:Renetta Ferrell RN
--- NOTE | 2017-12-14 15:42 | SOAPPROG ---
SOAP Progress Note Assessment/Plan: Assessment: Plan: 12/14/17 15:42 GI note See dictated consult for details. Will plan on colonoscopy in am. Objective: Vital Signs Temp Pulse Resp BP Pulse Ox 36.6 C 60 16 136/73 H 95 12/14/17 15:11 12/14/17 15:11 12/14/17 15:11 12/14/17 15:11 12/14/17 15:11 PT 14.2 SEC (12.0-15.0) 12/13/17 22:00 INR 1.08 (0.83-1.16) 12/13/17 22:00 ICD10 Worksheet Patient Problems: Problems Problem Status Onset Rib lesion Acute GI bleed Acute
[2017-12-14] MEDS: PEG 3350/NA SULF,BICARB,CL/KCL (GAVILYTE-G) 4000 ML BTL PO ONE ×2 (18:12→19:00)
[2017-12-14] MEDS ORDERED: PEG 3350/NA SULF,BICARB,CL/KCL (GAVILYTE-G) 4000 ML BTL PO ONE (19:03)
[2017-12-14] MEDS ORDERED: MAGNESIUM CITRATE 300 ML BOTTLE PO PRN (19:05)
--- NOTE | 2017-12-14 20:45 | GCON ---
DATE OF CONSULTATION: 12/14/2017 REFERRING PHYSICIAN: Alondra Vela NP REASON FOR CONSULTATION: Hematochezia. CHIEF COMPLAINT: Hematochezia. HISTORY OF PRESENT ILLNESS: Mr. Lugo is a 77-year-old male with a history of atrial fibrillation on Eliquis, CVA, Aldrich's esophagus, prostate cancer, coronary artery disease, kidney cancer, who presents to [facility] with complaints of bright red blood per rectum. Andre states he was doing quite well until of this week when he had several bowel movements which were liquid in nature with blood. He said there was significant blood that filled most of the toilet bowl. He also had a possible episode of lightheadedness yesterday and he thus came into the emergency room for further evaluation. Besides these episodes, he states he was going to the bathroom normally. He denies any exacerbating or alleviating factors. He did have a prior colonoscopy on 11/13/2013 which was unrevealing. No diverticulosis or polyps were seen. I am being asked by Alondra Vela to evaluate Mr. Lugo in evaluation regarding bright red blood per rectum. PAST MEDICAL HISTORY: 1. Atrial fibrillation. 2. CVA. 3. Aldrich's esophagus. 4. Prostate cancer. 5. Bipolar disorder. 6. Renal cell carcinoma. 7. Hypothyroidism. 8. Osteoporosis. 9. Coronary artery disease. 10. Hypercholesteremia. PAST SURGICAL HISTORY: 1. Prostatectomy. 2. Appendectomy. 3. Multiple cervical surgeries. 4. Chandler fundoplication. 5. Aortic valve replacement. ALLERGIES: NKDA. MEDICATIONS: Lipitor, Seroquel, Sonata, Eliquis, Depakote, omeprazole, zolpidem. SOCIAL HISTORY: Former smoker. No significant alcohol. FAMILY HISTORY: Mother had colon cancer in her 90s. REVIEW OF SYSTEMS: A 14-point comprehensive review of systems was asked. Pertinent positives and negative per HPI. PHYSICAL EXAM: VITAL SIGNS: Blood pressure 117/60, pulse 50, temperature 36.4 , respirations 14. GENERAL: Awake, alert, oriented, no distress. HEENT: Anicteric. Moist mucosa. NECK: No JVD. CARDIOVASCULAR: Regular rhythm, positive S1, S2. No murmurs, rubs, or gallops appreciated. LUNGS: Clear to auscultation bilaterally. No wheezes, rales, or rhonchi. ABDOMEN: Soft, nontender, nondistended. Positive bowel sounds. No guarding or rebound. EXTREMITIES: No clubbing, cyanosis or edema. NEUROLOGIC: Cranial nerves 2-12 grossly intact. MUSCULOSKELETAL: No joint deformities. PSYCH: Normal affect. SKIN: No rash. LYMPH: No lymphadenopathy. LAB DATA: Blood work hemoglobin 12.3, hematocrit 36.0, platelet count 116, WBCs 4.67. INR 1.08. Sodium 142, creatinine 0.9, chloride 112, potassium 3.9. ASSESSMENT AND PLAN: 1. Bright red blood per rectum- with post hemorrhagic anemia. Etiology? Colonic mass versus hemorrhoidal versus other? At this time, recommend to proceed with colonoscopy to delineate the cause of his symptoms. The risks, benefits, and alternatives of the procedure discussed with the patient. The risk of infection, bleeding, perforation, sedation were discussed. All questions answered. Informed consent was obtained. Due to his atrial fibrillation on Eliquis, he is at increased risk of sedation as well as bleeding. 2. Atrial fibrillation: On Eliquis. 3. Hypercholesteremia. 4. Aldrich's esophagus. 5. Renal cell carcinoma. 6. Cerebrovascular accident. Thank you very much for this consultation. /[id number]/MODL MTDD
[2017-12-14] MEDS ORDERED: NS 1,000 ML IV SCH (21:00)
[2017-12-14] MEDS ORDERED: QUEtiapine FUMARATE 100 MG TAB PO SCH (21:00)
[2017-12-15] MEDS ORDERED: PEG 3350/NA SULF,BICARB,CL/KCL (GAVILYTE-G) 4000 ML BTL PO ONE (01:00)
[2017-12-15] MEDS ORDERED: PROPOFOL/EMULSION 500 MG/50 ML BOTTLE IV ONE ×2 (08:13→08:38)
[2017-12-15] MEDS ORDERED: ALBUTEROL 3 ML DEYVIAL IH PRN (08:21)
[2017-12-15] MEDS ORDERED: fentaNYL 100 MCG/2 ML INJ IVP PRN (08:21)
[2017-12-15] MEDS ORDERED: ACETAMINOPHEN 500 MG TAB PO PRN (08:21)
[2017-12-15] MEDS ORDERED: DEXAMETHASONE 4 MG/ML VIAL IVP PRN (08:21)
[2017-12-15] MEDS ORDERED: ONDANSETRON 4 MG/2 ML VIAL IVP PRN (08:21)
[2017-12-15] MEDS ORDERED: HYDROmorphONE/DILAUDID 2 MG/ML INJ IVP PRN (08:21)
[2017-12-15] MEDS ORDERED: oxyCODONE IR 5 MG TAB PO PRN (08:21)
[2017-12-15] MEDS ORDERED: NALOXONE HCL 0.4 MG/ML INJ IVP PRN (08:21)
--- NOTE | 2017-12-15 08:21 | PDANEPAE ---
ANE History of Present Illness Colonoscopy ANE Past Medical History - Cardiovascular History Hx Hypertension: No Hx Arrhythmias: No Hx Chest Pain: No Hx Coronary Artery / Peripheral Vascular Disease: No Hx CHF / Valvular Disease: No Hx Palpitations: No Cardiovascular History Comment: AORTIC VALVE REPLACEMENT 2008 with fiona - Pulmonary History Hx COPD: No Hx Asthma/Reactive Airway Disease: No Hx Recent Upper Respiratory Infection: No Hx Oxygen in Use at Home: No Hx Sleep Apnea: No Sleep Apnea Screening Result - Last Documented: Negative Pulmonary History Comment: current pna poss TB - Neurologic History Hx Cerebrovascular Accident: No Hx Seizures: No Hx Dementia: No Neurologic History Comment: hx of cervical and thoracic spinal fusions - Endocrine History Hx Diabetes: No Endocrine History Comment: hypothyroidism - Renal History Hx Renal Disorders: Yes Renal History Comment: hx of left partial nephrectomy 2011. hx of prostatectomy - Liver History Hx Hepatic Disorders: No - Neurological & Psychiatric Hx Hx Neurological and Psychiatric Disorders: Yes Neurological / Psychiatric History Comment: BIPOLAR - Cancer History Hx Cancer: Yes Cancer History Comment: PROSTATE,KIDNEY - Congenital Disorder History Hx Congenital Disorders: No - GI History Hx Gastrointestinal Disorders: Yes Gastrointestinal History Comment: GERD. SAMUEL'S ESOPHAGUS - Other Health History Other Health History: wears glasses occ. recent travel to [facility] where he may have picked up TB - Chronic Pain History Chronic Pain: No - Surgical History Prior Surgeries: 7th rib resection with dr arambula 04/07/13. LT KIDNEY REMVL TUMOR 11/[address] lacy. AORTIC VALVE REPLACEMENT [address] jaimes. CERVICAL AND THORAC FUSION x3 2-cervical spine 1- thoracic spine. LT TOTAL HIP. PROSTATECTOMY ANE Review of Systems Review of Systems: ANE Patient History - Allergies Allergies/Adverse Reactions: No Known Allergies Allergy (Verified 12/13/17 21:47) - Home Medications Home Medications: Apixaban [Eliquis] 5 mg PO BID 12/14/17 [Last Taken 12/13/17 10:00] Atorvastatin Calcium [Lipitor 40 mg (*)] 40 mg PO HS 12/14/17 [Last Taken ] Denosumab [Prolia] 60 mg SQ Q180D 12/14/17 [Last Taken 11/04/17] Divalproex ER [Depakote ER 500 MG (*)] 750 mg PO HS 12/14/17 [Last Taken 22:00 500 mg] LORazepam [Ativan (*)] 0.5 mg PO QID PRN 12/14/17 [Last Taken Unknown] Multivitamins [Multivitamin (*)] 1 each PO DAILY 12/14/17 [Last Taken Unknown] Omeprazole 40 mg PO BID 12/14/17 [Last Taken 12/13/17 10:00 40 mg] QUEtiapine FUMARATE [Seroquel 100 mg (*)] 400 mg PO HS 12/14/17 [Last Taken ] ZOLPIDEM TARTRATE [Ambien CR 12.5 mg] 12.5 mg PO HS 12/14/17 [Last Taken 22:00 12.5 mg] Zaleplon [Sonata] 10 mg PO HS PRN 12/14/17 [Last Taken 12/13/17] - NPO status NPO Since - Liquids (Date): 12/14/17 NPO Since - Liquids (Time): 21:00 NPO Since - Solids (Date): 12/13/17 NPO Since - Solids (Time): 19:00 - Smoking Hx Smoking Status: Former smoker - Family Anes Hx Family Hx Anesthesia Complications: none ANE Labs/Vital Signs - Labs Result Diagrams: 12/14/17 04:53 12/14/17 04:53 - Vital Signs Blood Pressure: 135/68 Heart Rate: 62 Respiratory Rate: 16 O2 Sat (%): 93 Height: 177.8 cm Weight: 71.1 kg ANE Physical Exam - Airway Neck exam: FROM Mallampati Score: Class 2 Mouth exam: normal dental/mouth exam - Pulmonary Pulmonary: clear to auscultation - Cardiovascular Cardiovascular: regular rate and rhythym - ASA Status ASA Status: III ANE Anesthesia Plan Anesthesia Plan: GA with mask
[2017-12-15] MEDS ORDERED: MULTIVITAMINS 1 EACH TAB PO SCH (09:00)
--- NOTE | 2017-12-15 09:09 | POSTANESTH ---
Post Anesthetic Evaluation Cardiovascular Status: Normal, Stable Respiratory Status: Normal, Stable Level of Consciousness/Mental Status: Moderately Sleepy Pain Control: Adequate, Prn Tx Ordered Nausea/Vomiting Control: Adequate, Prn Tx Ordered Complications Possibly Related to Anesthesia: None Noted
--- NOTE | 2017-12-15 09:15 | GIREPORT ---
[facility] - Endoscopy Department Patient Name: Andre Lugo Procedure Date: 12/15/2017 8:16 AM Patient Type: Inpatient Attending MD/ ER Physician: Esteban Clark MD Procedure: Colonoscopy Indications: Hematochezia Patient Profile: 77 year old male presents for evaluation of hematochezia. Providers: Esteban Clark MD Medicines: Monitored Anesthesia Care Complications: No immediate complications. Estimated blood loss: Minimal. Description of Procedure: After obtaining informed consent, the scope was passed under direct vis ion. Throughout the procedure, the patient's blood pressure, pulse, and oxyg en saturations were monitored continuously. The Colonoscope with irrigatio n channel was introduced through the anus and advanced to the terminal il eum. The colonoscopy was performed without difficulty. The patient tolerated the procedure well. The quality of the bowel preparation was good. The term inal ileum, ileocecal valve, appendiceal orifice, and rectum were photograph ed. Findings: Hemorrhoids were found on perianal exam. Diverticula were found in the sigmoid colon. A 3 mm polyp was found in the ascending colon. The polyp was sessile. T he polyp was removed with a cold biopsy forceps. Resection and retrieval w ere complete. A 5 mm polyp was found in the hepatic flexure. The polyp was sessile. T he polyp was removed with a cold snare. Resection and retrieval were compl ete. A 4 mm polyp was found in the descending colon. The polyp was sessile. The polyp was removed with a cold snare. Resection was complete, but the po lyp tissue was not retrieved. Estimated Blood Loss: Estimated blood loss was minimal. Post Op Diagnosis: - Hemorrhoids found on perianal exam. - Diverticulosis in the sigmoid colon. - One 3 mm polyp in the ascending colon, removed with a cold biopsy for ceps. Resected and retrieved. - One 5 mm polyp at the hepatic flexure, removed with a cold snare. Res ected and retrieved. - One 4 mm polyp in the descending colon, removed with a cold snare. Complete resection. Polyp tissue not retrieved. - Etiology? No obvious cause of symptoms. Suspect hemorrhoidal? No bloo d noted during this examination. Recommendation: - Return patient to hospital [facility] for ongoing care. - Resume previous diet. - Continue present medications. - Repeat colonoscopy in 3 years for surveillance. - Use fiber, for example Citrucel, Fibercon, Konsyl or Metamucil. - GI will sign off. - Thank you for the consultation! Attending Participation: I personally performed the entire procedure. Esteban Clark MD Esteban Clark MD 12/15/2017 9:15:02 AM This report has been signed electronicallyEsteban Clark MD Number of Addenda: 0 Note Initiated On: 12/15/2017 8:16 AM Total Procedure Duration Time 0 hours 39 minutes 9 seconds [email or web address]
[2017-12-15 11:19] VITALS: BP 120/62
[2017-12-15] MEDS: PANTOPRAZOLE SODIUM 40 MG VIAL IVP SCH (11:31)
--- NOTE | 2017-12-15 14:49 | GDS ---
DISCHARGE DIAGNOSES: 1. Bright red blood per rectum. 2. History of atrial fibrillation. 3. History of cerebrovascular accident. CONSULTATIONS: Gastroenterology. STUDIES AND PROCEDURES DONE: Colonoscopy. PHYSICAL EXAM: GENERAL: The patient is alert. VITAL SIGNS: Afebrile at 36.6. Pulse is 55, respir atory rate 16. Blood pressure is 120/60, saturating 92% on room air. I have seen and evaluated the patient on the day of discharge. HOSPITAL COURSE: The patient is a 77-year-old male presented to the emergency room with complaints o f hematochezia for 2 days. His H and H remained stable during this hospitalization. His Eliquis was placed on hold and his bleeding subsided. A colonoscopy was performed with Gastroenterology consult ation done. The colonoscopy noted polyps that were biopsied as well as hemorrhoids. Bleeding was fe lt likely secondary to hemorrhoid aggravation. The patient is hemodynamically stable and will reinit iate his Eliquis and follow up in the outpatient setting. He has had no further signs of bleeding. He is tolerating a regular diet and will continue his medical care in the outpatient setting. FOLLOWUP: Followup will be with his primary care physician, Dr. Justino Oglesby. DISCHARGE MEDICATIONS: I have not adjusted the patient's previously prescribed home medications to t he best of my knowledge. I reviewed the patient's disposition with Gastroenterology who are in agree ment with this plan. TIME SPENT WITH PATIENT: I spent greater than 35 minutes in the care, coordination, and management o f this patient's discharge. /[id number]/MODL
[2019-05-07] MEDS ORDERED: Denosumab [Prolia] 60 MG SQ SCH (11:15)
== END 2017-12-15 13:00 | disposition home or self-care (01) | DRG 379 ==
LOC: F3E 23:35 → OBSVTOIN 12-14 10:43
PROVIDERS: ADMIT Student in an Organized Health Care Education/Training Program; ATTEND Student in an Organized Health Care Education/Training Program
PROC: 0DBL8ZX Excision of Transverse Colon, Via Natural or Artificial Opening Endoscopic, Diagnostic (ICD-10-PCS; principal; 2017-12-15 08:00)
PROC: 0DBM8ZX Excision of Descending Colon, Via Natural or Artificial Opening Endoscopic, Diagnostic (ICD-10-PCS; principal; 2017-12-15 08:00)
PROC: 0DBK8ZX Excision of Ascending Colon, Via Natural or Artificial Opening Endoscopic, Diagnostic (ICD-10-PCS; principal; 2017-12-15 08:00)
DX: K62.5 Hemorrhage of anus and rectum (principal); K57.90 Diverticulosis of intestine, part unspecified, without perforation or abscess without bleeding; D12.2 Benign neoplasm of ascending colon; D12.3 Benign neoplasm of transverse colon; D12.4 Benign neoplasm of descending colon; K64.9 Unspecified hemorrhoids; E86.9 Volume depletion, unspecified; I48.91 Unspecified atrial fibrillation; F31.9 Bipolar disorder, unspecified; E78.00 Pure hypercholesterolemia, unspecified; E03.9 Hypothyroidism, unspecified; Z23 Encounter for immunization; Z79.01 Long term (current) use of anticoagulants; Z86.73 Personal history of transient ischemic attack (TIA), and cerebral infarction without residual deficits; Z85.46 Personal history of malignant neoplasm of prostate; Z80.0 Family history of malignant neoplasm of digestive organs; Z85.528 Personal history of other malignant neoplasm of kidney; Z95.4 Presence of other heart-valve replacement
CPT/HCPCS: 84402-90; 96374; G0008; G0378; J2704

== ENCOUNTER 2018-06-13 12:14 | Observation (INO) | payer OTHER ==
--- NOTE | 2018-06-13 12:53 | EDPHY ---
H & P Stated Complaint: sent by gluten settling tender for stroke eval, transient R eye vision changes Time Seen by Provider: 06/13/18 12:51 HPI/ROS: CHIEF COMPLAINT: Transient visual loss right eye HISTORY OF PRESENT ILLNESS: 77-year-old male with atrial fibrillation status post ablation and prior CVA presents with transient visual loss in the right eye. Over the past 3 weeks, he has had approximately 15 episodes of vision loss in the right eye. The vision loss involves the peripheral vision. His central vision remains normal. The episodes usually last 5-10 minutes and then completely resolved. He saw his gluten settling tender this morning, who sent him to the emergency department for further evaluation. He is currently taking Eliquis and has not missed any dosages. He saw his medical staff services manager yesterday for a routine check and had a normal eye exam. No headache and no recent head injury. REVIEW OF SYSTEMS: complete 10 point ROS reviewed and is negative except for the noted elements in the HPI - Personal History Tetanus Vaccine Date: 09/2011 - Medical/Surgical History Hx Asthma: Yes Hx Chronic Respiratory Disease: No Hx Diabetes: No Hx Cardiac Disease: No Hx Renal Disease: Yes Hx Cirrhosis: No Hx Alcoholism: No Hx HIV/AIDS: No Hx Splenectomy or Spleen Trauma: No Other PMH: Kidney CA; prostectomy; cervical fusion x2; left hip replacement; partial nephrectomy; Aortic valve replacement; appy; colonoscopy/endoscopy w/ biopsy. 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 Skin: Warm and dry Extremities: Nontender, no pedal edema Psychiatric: Mood and affect normal Constitutional: Initial Vital Signs Temperature (C) 36.3 C 06/13/18 12:25 Heart Rate 78 06/13/18 12:25 Respiratory Rate 16 06/13/18 12:25 Blood Pressure 136/74 H 06/13/18 12:25 O2 Sat (%) 97 06/13/18 12:25 O2 Delivery Mode Room Air Allergies/Adverse Reactions: No Known Allergies Allergy (Verified 12/13/17 21:47) Home Medications: Medication Instructions Recorded Apixaban [Eliquis] 5 mg PO BID 12/14/17 Atorvastatin Calcium [Lipitor 40 40 mg PO HS 12/14/17 mg (*)] Denosumab [Prolia] 60 mg SQ Q180D 12/14/17 Divalproex ER [Depakote ER 500 MG 500 mg PO HS 12/14/17 (*)] Multivitamins [Multivitamin (*)] 1 each PO DAILY 12/14/17 Omeprazole 40 mg PO BID 12/14/17 QUEtiapine FUMARATE [Seroquel 100 300 mg PO HS 12/14/17 mg (*)] ZOLPIDEM TARTRATE [Ambien CR 12.5 12.5 mg PO HS 12/14/17 mg] Zaleplon [Sonata] 10 mg PO DAILY@02 PRN 12/14/17 Albuterol [Proventil Inhaler HFA 1 - 2 puffs IH Q4H PRN 06/13/18 (*)] LORazepam [Ativan (*)] 0.5 mg PO DAILY PRN 06/13/18 Verapamil ER [Calan SR/ER 120MG 120 mg PO DAILY #30 tab 06/14/18 (*)] Medical Decision Making - Diagnostics EKG Interpretation: EKG interpreted by me reveals sinus rhythm with multiple PACs, LVH, T-wave inversion in aVL. Interpretation: Abnormal EKG Imaging Results: CT head: diffuse atrophy, microvascular disease Imaging: Discussed imaging studies w/ manager market research Radiologist ED Course/Re-evaluation: This patient presents with transient visual loss in the right eye, consistent with multiple TIAs. He is currently asymptomatic and neurologic exam is unremarkable. Stat EKG reveals no evidence of ischemia or significant dysrhythmia. CT: NAD. He will need admission for further evaluation of TIAs. Asymptomatic throughout his ED stay. The hospitalist service was consulted for admission. Differential Diagnosis: Altered mental status including but not limited to hypoglycemia, infectious process, electrolyte abnormality, head injury, CVA, and intoxicants. - Data Points Medications Given: Discontinued Medications Apixaban (Eliquis) 5 mg PO BID [facility] Stop: 12/10/18 20:59 Last Admin: 03/30/19 09:42 Dose: 5 mg Atorvastatin Calcium (Lipitor) 40 mg PO HS [facility] Stop: 12/10/18 20:59 Last Admin: 06/13/18 20:37 Dose: 40 mg Divalproex Sodium (Depakote Er) 500 mg PO HS [facility] Stop: 12/10/18 20:59 Last Admin: 06/13/18 20:37 Dose: 500 mg Pantoprazole Sodium (Protonix) 40 mg PO BID [facility] Stop: 12/11/18 08:59 Last Admin: 06/14/18 09:42 Dose: 40 mg Quetiapine Fumarate (Seroquel) 300 mg PO HS [facility] Stop: 12/10/18 20:59 Last Admin: 06/13/18 20:37 Dose: 300 mg Verapamil HCl (Calan Sr) 120 mg PO DAILY [facility] Stop: 12/11/18 10:59 Last Admin: 06/14/18 11:06 Dose: 120 mg Departure - Departure Disposition: [facility] Acute Clinical Impression: Transient cerebral ischemia Qualifiers: Transient cerebral ischemia type: unspecified Qualified Code(s): G45.9 - Transient cerebral ischemic attack, unspecified Condition: Fair
[2018-06-13 13:14] LABS: PLATELET COUNT 154 10^3/uL (150-400)
[2018-06-13] MEDS ORDERED: LORazepam 0.5 MG TAB PO PRN (14:15)
[2018-06-13] MEDS ORDERED: ZALEPLON 10 MG PO PRN (14:15)
[2018-06-13] MEDS ORDERED: ALBUTEROL 60 PUFFS/8 GM MDI IH PRN (14:15)
--- NOTE | 2018-06-13 14:17 | PDGENHP ---
History and Physical - Chief Complaint transient vision loss - History of Present Illness 77yo M with history of CVA, pAF on eliquis here with right eye vision loss. He has noticed approximately 15 episodes of peripheral vision loss over the past 3 weeks. His central vision remains intact. These episodes last about 5 minutes and resolve spontaneously. No other neurologic deficits/abnormalities. He has been taking eliquis and hasn't missed any doses. He saw an canvass manager yesterday and reportedly had a normal exam. He saw his delivery driver/customer service at [facility] today who referred him to the ED for evaluation of his vision changes. History Information - Allergies/Home Medication List Allergies/Adverse Reactions: No Known Allergies Allergy (Verified 12/13/17 21:47) Home Medications: Apixaban [Eliquis] 5 mg PO BID 12/14/17 [Last Taken 06/13/18] Atorvastatin Calcium [Lipitor 40 mg (*)] 40 mg PO HS 12/14/17 [Last Taken ] Denosumab [Prolia] 60 mg SQ Q180D 12/14/17 [Last Taken 3 Weeks Ago ~05/23/18] Divalproex ER [Depakote ER 500 MG (*)] 500 mg PO HS 12/14/17 [Last Taken ] Multivitamins [Multivitamin (*)] 1 each PO DAILY 12/14/17 [Last Taken 06/13/18] Omeprazole 40 mg PO BID 12/14/17 [Last Taken 06/13/18] QUEtiapine FUMARATE [Seroquel 100 mg (*)] 300 mg PO HS 12/14/17 [Last Taken ] ZOLPIDEM TARTRATE [Ambien CR 12.5 mg] 12.5 mg PO HS 12/14/17 [Last Taken ] Zaleplon [Sonata] 10 mg PO DAILY@02 PRN 12/14/17 [Last Taken 06/13/18] Albuterol [Proventil Inhaler HFA (*)] 1 - 2 puffs IH Q4H PRN 06/13/18 [Last Taken Unknown] LORazepam [Ativan (*)] 0.5 mg PO DAILY PRN 06/13/18 [Last Taken Unknown] I have personally reviewed and updated: family history, medical history, social history, surgical history - Past Medical History Additional medical history: atrial fibrillation s/p ablation, bipolar disorder, renal cell cancer, prostate cancer, levy's esophagus, CVA 08/2017 thought related to his atrial fibrillation, GI bleed (d/t hemorrhoid or benign adenoma) , bicuspid aortic valve, HTN - Surgical History Reports: spinal surgery Additional surgical history: bovine aortic valve replacement, hip replacement, R partial nephrectomy, radical prostatectomy - Family History Additional family history: Mother had colon cancer in her 90's - Social History Smoking Status: Former smoker Alcohol Use: None Drug Use: None Additional social history: Lives with . Independent in ADLs. Review of Systems Review of Systems: ROS: 10pt was reviewed & negative except for what was stated in HPI & below Physical Exam Physical Exam: Temp Pulse Resp BP Pulse Ox 36.3 C 78 16 136/74 H 97 06/13/18 12:25 06/13/18 12:25 06/13/18 12:25 06/13/18 12:25 06/13/18 12:25 Constitutional: no apparent distress, appears nourished, not in pain Eyes: PERRL, anicteric sclera, EOMI Ears, Nose, Mouth, Throat: moist mucous membranes, hearing normal, ears appear normal, no oral mucosal ulcers Cardiovascular: regular rate and rhythym, systolic murmur, No edema Respiratory: no respiratory distress, no rales or rhonchi, clear to auscultation Gastrointestinal: normoactive bowel sounds, soft, non-tender abdomen, no palpable masses Genitourinary: no bladder fullness, no bladder tenderness Skin: warm, normal color, no rashes or abrasions, no fluctuance, no induration, No mottled Musculoskeletal: full muscle strength, no muscle tenderness, normal joint ROM, no joint effusions Neurologic: AAOx3, sensation intact bilaterally, CN II-XII Intact, No weakness, No numbness, No pronator drift, No facial droop Psychiatric: interacting appropriately, not anxious, not encephalopathic, thought process linear Lab Data & Imaging Review 06/13/18 13:05 06/13/18 13:05 WBC 4.26 10^3/uL (3.80-9.50) 06/13/18 13:05 RBC 4.45 10^6/uL (4.40-6.38) 06/13/18 13:05 Hgb 13.6 g/dL (13.7-17.5) L 06/13/18 13:05 Hct 39.5 % (40.0-51.0) L 06/13/18 13:05 MCV 88.8 fL (81.5-99.8) 06/13/18 13:05 MCH 30.6 pg (27.9-34.1) 06/13/18 13:05 MCHC 34.4 g/dL (32.4-36.7) 06/13/18 13:05 RDW 13.5 % (11.5-15.2) 06/13/18 13:05 Plt Count 154 10^3/uL (150-400) 06/13/18 13:05 MPV 9.2 fL (8.7-11.7) 06/13/18 13:05 Neut % (Auto) 62.3 % (39.3-74.2) 06/13/18 13:05 Lymph % (Auto) 23.9 % (15.0-45.0) 06/13/18 13:05 [place] % (Auto) 10.3 % (4.5-13.0) 06/13/18 13:05 Eos % (Auto) 3.1 % (0.6-7.6) 06/13/18 13:05 Baso % (Auto) 0.2 % (0.3-1.7) L 06/13/18 13:05 Nucleat RBC Rel Count 0.0 % (0.0-0.2) 06/13/18 13:05 Absolute Neuts (auto) 2.65 10^3/uL (1.70-6.50) 06/13/18 13:05 Absolute Lymphs (auto) 1.02 10^3/uL (1.00-3.00) 06/13/18 13:05 Absolute Monos (auto) 0.44 10^3/uL (0.30-0.80) 06/13/18 13:05 Absolute Eos (auto) 0.13 10^3/uL (0.03-0.40) 06/13/18 13:05 Absolute Basos (auto) 0.01 10^3/uL (0.02-0.10) L 06/13/18 13:05 Absolute Nucleated RBC 0.00 10^3/uL (0-0.01) 06/13/18 13:05 Immature Gran % 0.2 % (0.0-1.1) 06/13/18 13:05 Immature Gran # 0.01 10^3/uL (0.00-0.10) 06/13/18 13:05 POC Troponin I 0.00 ng/mL (0.00-0.08) 06/13/18 13:30 Interpretation: CT head: No acute findings. Diffuse cerebral atrophy. EKG additional interpertation: ECG: Appears sinus with sinus arrhythmia. Normal axis and intervals. No acute ST-T segment ischemic changes. Good R wave progression. Assessment & Plan Assessment: 77yo M with history of bovine AV replacement, CVA, pAF on eliquis here with transient right eye vision loss. Plan: #Transient monocular vision loss: Multiple episodes involving peripheral vision in right eye. Currently resolved. Had normal ophthalmologic exam per his report. - CTA head/neck - MRI brain wo - TTE w/bubble, telemetry - PT/OT/INDIRECT SALES EXEC - Neuro consult in AM. If we are considering this to be a tia/cva, appreciate neurology input on antiplatelet/anticoagulation medications moving forward #H/o atrial fibrillation s/p ablation: Sinus here. - Continue eliquis #H/o CVA: Mild residual expressive aphasia - Continue anticoagulation, statin #Bovine AV replacement: This was done in 2006 for bicuspid AV. He is not in heart failure. Getting echo as above to eval. #RCC s/p partial R nephrectomy: Followed by [facility] #Prostate cancer s/p prostatectomy #Bipolar disorder: Compensated. Continue home meds. VTE ppx: therapeutic anticoagulation Code: full Dispo: Admit under observation w/telemetry
[2018-06-13] MEDS ORDERED: IOPAMIDOL (ISOVUE-370) 150 ML BTL IV ONE (14:19)
--- NOTE | 2018-06-13 15:17 | CPEKG ---
Test Reason : OPEN Blood Pressure : / mmHG Vent. Rate : 056 BPM Atrial Rate : 000 BPM P-R Int : 169 ms QRS Dur : 088 ms QT Int : 392 ms P-R-T Axes : 070 071 091 degrees QTc Int : 379 ms Normal sinus rhythm PAC's Consider left ventricular hypertrophy Nonspecific T abnormalities, lateral leads Confirmed by Annamaria Dowell ([id number]) on 06/13/2018 3:17:21 PM Referred By: ANNAMARIA DOWELL Confirmed By:Annamaria Dowell
--- NOTE | 2018-06-13 15:25 | ECHO ---
[email or web address] [address] [address] Main: [phone] Echocardiography Examination Transthoracic Name: GENO MENDOZA MR#: [id number] Study Date: 06/13/2018 Study Time: 02:31 PM Date of : 1940 Age: 77 year(s) Height: 177.8 cm (70 in.) Weight: 68.04 kg (150 lb.) BSA: 1.85 m2 Gender: Male Examination: Echo with Agitated Saline Contrast: Image Quality: Adequate Rhythm: Heart Rate: BP: 121 mmHg/89 mmHg Indication: Ischemic Stroke Procedure Staff Referring Physician: Cad Librarian: Teetee Hughes RDCS Reading Physician: Jacob Quezada MD Requesting Provider: Ordering Physician: Rafat Kelley Indication: Ischemic Stroke Measurements Chambers AV/MV Label Value Normal Value Label Value Normal Value IVSd, 2D 1.2 cm (0.6cm - 1.1cm) AV PGmax 12 mmHg LVDd, 2D 4.4 cm (4.2cm - 5.9cm) AV PGmean 6 mmHg LVDs, 2D 3 cm (2.1cm - 4cm) AV Vmax 1.7 m/s LVEF, 2D 59 % (54% - 74%) TATA (continuity eq. 1.1 cm2 LVEF, BP 67 % (55% - 70%) Vmax) LVOT PGmax 2 mmHg TATA D (continuity eq. 1.3 cm2 LVOT PGmean 1 mmHg VTI) LVOT Vmax 0.62 m/s (0.7m/s - 1.1m/s) MV A Vmax 1.06 m/s LVOT Vmean 0.41 m/s MV DT 130 ms LVOTd 2 cm (1.9cm - 2.1cm) MV E' lateral 0.09 m/s LVPWd, 2D 1.1 cm (0.6cm - 1cm) MV E' mean 0.08 m/s RVDd, 2D 2.5 cm (1.9cm - 3.8cm) MV E' septal 0.07 m/s LA Volume, BP 54 ml (18ml - 58ml) MV E Vmax 0.7 m/s LADs, 2D 4.2 cm (3cm - 4cm) MV E/A 0.66 LAESV index, BP 29.2 ml/m2 MV E/E' lateral 7.8 RA Area 14.2 cm2 MV E/E' mean 8.75 Additional Vessels MV E/E' septal 9.6 (0.45 - 1.25) Label Value Normal Value MV PHT 0.04 s AoAsc 3.1 cm MV PHT 41 ms MVA PHT 5.4 cm2 Patient: GENO MENDOZA Study Date: 06/13/2018 Page 1 of 3 02:31 PM AoRoot, 2D 3 cm (1.4cm - 2.6cm) TV/PV IVC 1.2 cm (1.2cm - 2.3cm) Label Value Normal Value RA Pressure 5 mmHg RVSP 25 mmHg TR Pmax 20 mmHg TR Vmax 2.21 m/s PV PGmax 2 mmHg PV Vmax, Caliper 0.77 m/s (0.6m/s - 0.9m/s) Conclusions Overall Conclusions: No pericardial effusion. Ejection fraction 67%. Concentric left ventricular hypertrophy. Mitral annular calcification with mild mitral regurgitation. Bioprosthetic aortic valve right ventricular systolic pressure is 25 mm of mercury. Injection of agitated saline revealed no evidence of right to left shunting. Findings Left Ventricle: Left ventricle is normal in size. Normal global systolic left ventricular function. The ejection fraction, measured by Simpsons method, is 67 %. There is mild concentric left ventricular hypertrophy. There are no regional wall motion abnormalities. Left ventricular diastolic function parameters are normal. No LV hypertrophy. Right Ventricle: Normal size right ventricle. Right ventricular systolic function is normal. Left Atrium: The left atrium is normal in size. IAS: An agitated saline study was performed and was negative for intracardiac shunting. Mitral Valve: Mitral valve appears structurally normal. Mild mitral regurgitation. No mitral valve stenosis. There is mitral annular calcification. Aortic Valve: The aortic valve is a bioprosthesis. The prosthetic aortic valve is normal. The orifice motion of the prosthetic aortic valve is normal. No prosthesis regurgitation. Tricuspid Valve: Tricuspid valve leaflets are structurally normal. Mild tricuspid regurgitation. No tricuspid valve stenosis. Right Ventricular systolic pressure is measured at 25 mmHg. Pulmonary artery pressure normal. Pulmonic Valve: Pulmonic leaflets are structurally normal. Mild pulmonic valve regurgitation is present. Aorta: The aortic root size in 2D measures 3.0 cm. The ascending aorta measures 3.1 cm. Aorta Measurements AoRoot, 2D is 3.0 cm. IVC: The inferior vena cava is normal in size. Pericardium: No pericardial effusion. Exam Details Procedure Ordered: Echo with Agitated Saline Procedure Status: Routine study Image Quality: Adequate Patient: GENO MENDOZA Study Date: 06/13/2018 Page 2 of 3 02:31 PM Facility Location: Cardiac Echo 1 (No Signature Object) Patient: GENO MENDOZA Study Date: 06/13/2018 Page 3 of 3 02:31 PM [id number]
[2018-06-13] MEDS ORDERED: ZOLPIDEM TARTRATE 5 MG TAB PO PRN (15:49)
[2018-06-13] MEDS: APIXABAN 5 MG TAB PO SCH (20:37)
[2018-06-13] MEDS ORDERED: DIVALPROEX ER 500 MG TAB PO SCH (21:00)
[2018-06-13] MEDS ORDERED: ATORVASTATIN CALCIUM 40 MG TAB PO SCH (21:00)
[2018-06-13] MEDS ORDERED: QUEtiapine FUMARATE 100 MG TAB PO SCH (21:00)
[2018-06-14] MEDS ORDERED: PANTOPRAZOLE SODIUM 40 MG TAB PO SCH (09:00)
[2018-06-14] MEDS: APIXABAN 5 MG TAB PO SCH (09:42)
--- NOTE | 2018-06-14 10:25 | ASMTCMCOM ---
CM Note CM Note Notes: CM reviewed pt's chart for d/c planning. Pt is a 77y/o male with a medical hx of bipolar disorder, afib, renal cancer and a CVA withmild residual expressive aphasia, presented to the ED with transient visual loss in his right eye over the past 15 days. Pt lives in [place]; his is Doretha, . PT/OT/CHRISTIAN SCIENCE READER have been ordered; CM will follow for recommendations. D/C Plan: TBD Date Signed: 06/14/2018 10:25 AM Electronically Signed By:Christelle Chavis
--- NOTE | 2018-06-14 10:50 | GCON ---
[f rep st] CONSULTATION The patient is a 77-year-old gentleman whom I am seeing in neurologic consultation regarding recurrin g episodes of impairment in the right eye of his vision. About 3 weeks ago, he started having very s tereotyped episodes in which his central vision will be spared, but there will be a peripheral loss o f vision in a circular or arcuate distribution. He says it really never lasts more than about 5 philly jina and is not associated with pain or any other symptoms. He has had some ophthalmologic assessment without any clear cause explained and was advised to have emergency room evaluation as well to [facility] look for sources. The patient says that the episodes occur about every 2 days over the last 3 wee ks. He is sure it is not affecting the left eye because he has checked. He does not get headaches d uring, before, or after these events. Currently, he feels back to his baseline, except he does have some baseline memory problems as well a s some mild trouble with his fluency he says, although that is not very evident in our conversation. He has a complex past history related to cerebrovascular disease, which I will describe. I saw him in 2016 in the office for the first time, and we were assessing some cognitive complaints and did a w orkup in which we did not see any distinct lesions in the brain, but there was a question raised abou t vertebral artery stenosis, and we found evidence of a chronic occlusion, perhaps from an old dissec tion or clot, and he had been on antiplatelet therapy with aspirin. In August of last year, he had a s troke and was admitted in [place] for a workup. At that time, he had brain imaging showing recent i schemic infarcts in the left centrum semiovale and postcentral gyrus, and some chronic right parahipp ocampal ischemic change. There was still the evidence of the suspected old left vertebral occlusion, but no carotid stenoses. His CY did not show any evidence of embolism. He was on aspirin and Plav ix for treatment at that time. He has subsequently been found to have paroxysmal atrial fibrillation and is on Eliquis. PAST MEDICAL HISTORY: Additional past medical history is notable for bipolar disease. He has some m ild cognitive impairment and has had assessment with formal neuropsych testing in the past. He has h ad bovine aortic valve replacement, hip replacement, partial nephrectomy and a radical prostatectomy. Hypertension. FAMILY HISTORY: Negative for stroke. He smoked in the past. He lives with his . CURRENT MEDICATIONS: Albuterol, Eliquis, Lipitor, Depakote, lorazepam as needed, Seroquel in the syeda darnell, and Ambien as needed for sleep. ALLERGIES: None. REVIEW OF SYSTEMS: As outlined above, otherwise, unremarkable. PHYSICAL EXAM: VITAL SIGNS: The blood pressure is 126/78, pulse of 66, respirations 15, temperature 36.6. GENERAL: Well developed, no acute distress. HEENT: Eyes: Clear. No visual loss. Extraoc ular movements intact. Normal facial sensation and strength. Palate elevates symmetrically. Tongue protrudes midline. MUSCULOSKELETAL: The motor exam reveals normal muscle bulk and tone, 5/5 streng th, and no abnormal movement. Sensation is preserved for temperature and light touch. Reflexes 1+ a nd symmetric. Gait is steady. LABORATORY STUDIES: Normal CBC. Electrolytes reveal LDL cholesterol 40. The CT angiogram of the he ad and neck did not reveal carotid distribution stenoses. 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 Brain MRI shows the nonspecific white matter changes with no definite acute stro ke, although could be some subacute ischemic change in the high right frontal region seen on diffusio n-weighted imaging and somewhat evident on the FLAIR imaging as well, which could represent a T2 crump e-through phenomenon. I see subtle changes in the left hemisphere that probably are consistent with old ischemia seen when he was in [place] and had a stroke in August. Three years ago when he had MRI, there was some unexplained relative thickening of the right parietal dura, and I see some of that no w, and that looks unchanged. His echocardiogram is unremarkable here and negative bubble study. The patient's current NIH Stroke Scale is 0. IMPRESSION: Total unit time of 75 minutes. 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 Differential conside ration would be local retinal artery stenosis or branch stenosis with relative hypoperfusion intermit tently versus a vascular spasm phenomenon or recurrent emboli. He is on anticoagulation, and it seem s unlikely that he is having this many emboli to the exact same location in such a stereotyped patter n. A migrainous phenomenon within the spectrum of what we might refer to as a spasm phenomenon seems likely to me. This is not something we can really effectively prove. We do not see evidence of vas culitis. There is not greater anticoagulation I would recommend. I do not think adding further anti -platelet therapy on top of the Eliquis is likely to be beneficial and could increase risk of bleedin g substantially. Therefore, I am recommending we use a calcium channel radha to see if that might help prevent these episodes related to possible spasm. I told him I do not think he is in danger of acute stroke in the short term and should be safe to be able to be discharged most likely today. We have completed the thorough workup. The subtlety in the right high frontal lobe of perhaps subacute ischemia is not something that will change our management and is not something that would explain any of these symptoms. He can follow up with me as an outpatient in a few weeks to review his progress, and he will follow up with Ophthalmology as well and have cardiology and primary care followup over the next month or 2. He already has a loop recorder in place and says that he has been told he has a bout 10% atrial fibrillation and is already appropriately managed for that. /[id number]/MODL
[2018-06-14] MEDS ORDERED: VERAPAMIL ER 120 MG TAB PO SCH (11:00)
[2018-06-14 11:08] VITALS: BP 120/78
--- NOTE | 2018-06-14 14:27 | ASDISCHSUM ---
Discharge Information Plan Status:Home with No Needs Medically Cleared to Leave: Discharge Date: CM D/C Disposition:Home, Routine, Self-Care ADT D/C Disposition: Projected Discharge Date: Transportation at D/C:Family Discharge Delay Reason: Follow-Up Date: Discharge Slot: Final Diagnosis: Placement Information Patient Contact Information Contact Name:ALFRED Relationship: Address:[address] City:[place] Alternate Phone: [facility]/Zip Code:[place] [address] Email: Financial Information Financial Class:Medicare Advantage Plans Primary Plan Desc:[employer] MEDICARE ADV Primary Plan Number:[id number] Secondary Plan Desc: Secondary Plan Number: Assessment Information LACE LACE Length of stay for Answers: Less than 1 day current admission Acuity / Level of Answers: No Care: Did the patient have an inpatient admission? Comorbidities - select Answers: Any tumor (including all that apply lymphoma or leukemia) Cerebrovascular disease (CVA, TIA, aneurysms, vasc ular dementia) Other Notes: afib # of Emergency department Answers: 1-2 visits in the last 6 months Social determinants Answers: Mental health diagnosis (anxiety, depression, pers onality disorders, etc.) Score: 8 Date Signed: 06/14/2018 02:26 PM Electronically Signed By:Christelle Chavis [facility] Progress Note CM Note CM Note Notes: CM reviewed pt's chart for d/c planning. Pt is a 77y/o male with a medical hx of bipolar disorder, afib, renal cancer and a CVA withmild residual expressive aphasia, presented to the ED with transient visual loss in his right eye over the past 15 days. Pt lives in [place]; his is Doretha, . PT/OT/FUR MATCHER have been ordered; CM will follow for recommendations. D/C Plan: TBD Date Signed: 06/14/2018 10:25 AM Electronically Signed By:Christelle Chavis Intervention Information
--- NOTE | 2018-06-14 14:27 | PDDCSUM ---
Discharge Summary Discharge Summary: Date of Admission: 06/13/2018 Date of Discharge: 06/14/2018 Consultants: neurology Studies: CTA head/neck, TTE, MRI brain Discharge Diagnoses: 1. 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 Atrial fibrillation on anticoagulation 3. H/o CVA with residual speech fluency issues 4. Bovine AV replacement for bicuspid AV 5. RCC s/p partial R nephrectomy 6. Prostate cancer s/p prostatectomy 7. Bipolar disorder, very well compensated Brief Hospital Course: 77yo M with history of bovine AV replacement, CVA, pAF on eliquis here with transient right eye vision loss. He has had approximately 15 episodes of peripheral vision loss in his right eye over the last 2-3 weeks. These episodes have lasted about 5 minutes. He saw his personal trainer the day prior to admission and reportedly had a normal retinal examination. Stroke work up here was unrevealing for etiology of symptoms. Neurology was consulted. Ultimately, it was felt that his symptoms are likely related to vascular spasm. He was started on verapamil. He did not have any further episodes while inpatient. He was seen by PT/OT/STEEL HANGER who cleared him for home. Medications: Please refer to EMR for complete list. I wrote him a prescription for verapamil ER 120mg QD #30. Follow Up Plan: 1. Neurology f/u with Dr Oglesby in a few weeks 2. Continue to see ophthalmology and cardiology routinely Physical Exam: Vitals and telemetry reviewed, no atrial arrhythmias. Alert and oriented, very subtle issues with speech fluency, CN 2-12 intact. RRR, lungs clear, abdomen soft, no edema, no rashes.
== END 2018-06-14 15:13 | disposition home or self-care (01) ==
LOC: F3N 15:30
PROVIDERS: ADMIT Internal Medicine; ATTEND Internal Medicine
DX: H53.121 Transient visual loss, right eye (principal); I48.91 Unspecified atrial fibrillation; R29.700 NIHSS score 0; I65.01 Occlusion and stenosis of right vertebral artery; I69.328 Other speech and language deficits following cerebral infarction; F31.9 Bipolar disorder, unspecified; J45.909 Unspecified asthma, uncomplicated; K22.70 Barrett's esophagus without dysplasia; Z79.01 Long term (current) use of anticoagulants; Z85.46 Personal history of malignant neoplasm of prostate; Z85.528 Personal history of other malignant neoplasm of kidney; Z87.891 Personal history of nicotine dependence; Z96.642 Presence of left artificial hip joint; Z95.3 Presence of xenogenic heart valve; Z90.5 Acquired absence of kidney; Z98.1 Arthrodesis status
CPT/HCPCS: 70450; 70496; 70498; 70551; 92523; 93005; 93306; 97165; 99285; G0378; Q9967; 84484-ER